=== PATIENT | male | born 1955 | race Caucasian/White ===

== ENCOUNTER 2018-06-08 15:33 | Outpatient (CLI) | payer BC, OTHER | END 2018-06-08 15:34 | disposition critical access hospital (66) | LOC: EMS 15:33 | PROVIDERS: ATTEND Surgery | DX: R42 Dizziness and giddiness (principal); R11.2 Nausea with vomiting, unspecified | CPT/HCPCS: A0425; A0427 ==

== ENCOUNTER 2018-06-08 16:14 | Emergency (ER) | payer OTHER ==
--- NOTE | 2018-06-08 16:43 | ED Physician Documentation ---
History of Present Illness - Stated complaint Stated Complaint: NAUSEA - Chief complaint Chief Complaint: General - Additonal information Additional information: hx from pt and 62 male arrives at 1614 abrupt onset vertigo NV at non no HENDRICKS no fall no numbness or weakness no hx of same Review of Systems Constitutional: denies: Fever, Chills Cardiac: denies: Chest pain / pressure, Palpitations Respiratory: denies: Dyspnea, Cough GI: reports: Nausea, Vomiting. denies: Abdominal Pain, Diarrhea Neurologic: reports: Other (vertigo). denies: Focal weakness, Numbness, Headache PD PAST MEDICAL HISTORY - Present Medications Home Medications: Ambulatory Orders Medication Instructions Recorded Confirmed Escitalopram Oxalate [Lexapro] 20 mg PO DAILY 06/08/18 06/08/18 Meclizine [Antivert] 25 mg PO Q6H PRN #20 tablet 06/08/18 Promethazine [Phenergan] 25 mg PO Q6H PRN #10 tablet 06/08/18 - Allergies Allergies/Adverse Reactions: Allergies Allergy/AdvReac Type Severity Reaction Status Date / Time No Known Drug Allergies Allergy Verified 06/08/18 16:21 PD ED PE NORMAL - Vitals Vital signs reviewed: Yes - General General: Alert and oriented X 3 - HEENT HEENT: PERRL, EOMI (nystagmus looking right), Ears normal - Neck Neck: Supple, no meningeal sign - Cardiac Cardiac: RRR - Respiratory Respiratory: No respiratory distress, Clear bilaterally - Derm Derm: Normal color - Neuro Neuro: Alert and oriented X 3, recycling sorter 2-12 intact, No motor deficit, No sensory deficit, Normal speech, Other (retching and prefers eyes closed, nystagmus looking right) Eye Opening: Spontaneous Motor: Obeys Commands Verbal: Oriented GCS Score: 15 Results - Vitals Vitals: Vital Signs - 24 hr 06/08/18 06/08/18 16:18 19:08 Temperature 36.4 C L Heart Rate 57 L 56 L Respiratory 18 14 Rate Blood Pressure 138/85 H 148/90 H O2 Saturation 94 96 Oxygen O2 Source Room air - Labs Labs: Laboratory Tests 06/08/18 16:50 Sodium 136 Potassium 3.6 Chloride 103 Carbon Dioxide 26 Anion Gap 7.0 BUN 20 Creatinine 0.7 Estimated GFR (MDRD) 114 Glucose 123 H Calcium 8.4 L - Rads (name of study) CTH Radiology: See rad report (normal) PD MEDICAL DECISION MAKING - ED course ED course: vertigo onset [id number] prior to arrival likely periph given age will CT gave antiemetics and meclizine CTH neg labs fine pt feels much much better - Sepsis Event Vital Signs: Vital Signs - 24 hr 06/08/18 06/08/18 16:18 19:08 Temperature 36.4 C L Heart Rate 57 L 56 L Respiratory 18 14 Rate Blood Pressure 138/85 H 148/90 H O2 Saturation 94 96 Oxygen O2 Source Room air Departure - Departure Disposition: 01 Home, Self Care Clinical Impression: Vertigo Condition: Good Instructions: ED Vertigo Unspecified Prescriptions: Meclizine [Antivert] 25 mg PO Q6H PRN #20 tablet PRN Reason: Dizziness Promethazine [Phenergan] 25 mg PO Q6H PRN #10 tablet PRN Reason: vomiting Comments: The CT scan of your brain was fine And your blood work was fine too The vertigo is likely an inner ear problem and not a brain problem This is usually a self limited / self resolving problem. I have prescribed medications to ease your symptoms. And please do the head maneuvers on the hand out I gave you to help roll any particulate matter out of the sensory chambers of your inner ear - this can often result in complete resolution of symptoms
[2018-06-08] MEDS: MECLIZINE 12.5 MG TABLET PO STA (16:50)
[2018-06-08] MEDS: PROMETHAZINE INJ 25 MG in SODIUM CHLORIDE 0.9% 50 ML IV STA (16:59)
[2018-06-08] MEDS: SODIUM CHLORIDE 0.9% 1,000 ML IV ONE (16:59)
[2018-06-08 17:10] LABS: CALCIUM 8.4 mg/dL (8.5-10.3); CREATININE 0.7 mg/dL (0.6-1.2)
--- NOTE | 2018-06-08 18:01 | CT Report ---
Procedure Date: 06/08/2018 Accession Number: [id number] / [id number] Procedure: CT - Head W/O CPT Code: FULL RESULT: EXAM: CT HEAD EXAM DATE: 06/08/2018 05:37 PM. CLINICAL HISTORY: Vertigo NV. COMPARISON: None. TECHNIQUE: Multiaxial CT images were obtained from the foramen magnum to the vertex. Reformats: Coronal. IV contrast: None. In accordance with CT protocol optimization, one or more of the following dose reduction techniques were utilized for this exam: automated exposure control, adjustment of mA and/or KV based on patient size, or use of iterative reconstructive technique. FINDINGS: Parenchyma: No intraparenchymal hemorrhage. No evidence of mass, midline shift, or CT findings of infarction. Singh-white differentiation is distinct. Extraaxial Spaces: Normal for age. No subdural or epidural collections identified. Ventricles: Normal in size and position. Sinuses and Orbits: Imaged paranasal sinuses, orbits, and mastoids show no significant abnormality. Bones: No evidence of fracture or calvarial defect. Other: None. IMPRESSION: Normal head CT. [facility]
[2018-06-08 19:09] VITALS: BP 148/90
== END 2018-06-08 19:30 | disposition home or self-care (01) ==
LOC: ED 16:14
DX: R42 Dizziness and giddiness (principal); R11.2 Nausea with vomiting, unspecified
CPT/HCPCS: 36415; 70450; 80048; 96365; 99283; A9270; J7040